=== PATIENT | male | born 1965 | race African-American/Black ===

== ENCOUNTER 2016-09-02 19:08 | Inpatient (IN) | payer MEDICAID ==
[~2016-09-02] VITALS: Ht 190.5 cm; Wt 106.1 kg
[2016-09-02] MEDS ORDERED: Nitroglycerin 2% oint pkt TOPIC ONE (19:30)
[2016-09-02 19:38] LABS: BASOPHILS % (AUTO) 2.4 % (0.0-2.0); EOSINOPHILS % (AUTO) 3.3 % (0.0-3.0); MEAN CORPUSCULAR HEMOGLOBIN 30.8 PG (27.0-31.0); MEAN CORPUSCULAR HGB CONC 31.9 G/DL (32.0-36.0); MEAN CORPUSCULAR VOLUME 96 FL (80-99); MEAN PLATELET VOLUME 7.1 FL (6.5-10.1); MONOCYTES % (AUTO) 5.3 % (1.0-10.0); NEUTROPHILS % (AUTO) 45.1 % (45.0-75.0); PLATELET COUNT 316 K/UL (150-450); RED BLOOD COUNT 5.01 M/UL (4.70-6.10); RED CELL DISTRIBUTION WIDTH 12.8 % (11.6-14.8); WHITE BLOOD COUNT 6.6 K/UL (4.8-10.8)
[2016-09-02 19:46] LABS: ALANINE AMINOTRANSFERASE 27 U/L (3-41); ALBUMIN/GLOBULIN RATIO 1.6 (1.0-2.7); ANION GAP 13 (5-15); ASPARTATE AMINO TRANSFERASE 22 U/L (5-40); CALCIUM 9.3 mg/dL (8.6-10.2); CARBON DIOXIDE 26 mEQ/L (20-30); CHLORIDE 102 mEQ/L (98-107); GLOMERULAR FILTRATION RATE > 60 mL/min (>60); HEMOLYSIS 14; POTASSIUM 4.2 mEQ/L (3.4-4.9); SODIUM 141 mEQ/L (135-145); TOTAL PROTEIN 6.9 g/dL (6.6-8.7); TROPONIN I < 0.30 ng/mL (<=0.30)
[2016-09-02 19:56] LABS: CKMB 3.3 ng/mL (< 6.7)
[2016-09-02] MEDS ORDERED: Nitroglycerin 50mg/250ml btl 250 ML IV SCH (20:00)
[2016-09-02 20:07] VITALS: BP 184/158
[2016-09-02] MEDS ORDERED: BACLOFEN10 MG ORAL (20:13)
[2016-09-02] MEDS ORDERED: PRAMIPEXOLE D0.25 MG ORAL (20:13)
[2016-09-02] MEDS ORDERED: POTASSIUM GLUC500 GM MC (20:13)
[2016-09-02] MEDS ORDERED: GABAPENTIN300 MG ORAL (20:13)
[2016-09-02] MEDS ORDERED: LATUDA40 MG PO (20:16)
[2016-09-02] MEDS ORDERED: METOPROLOL SUC100 MG ORAL (20:16)
[2016-09-02] MEDS ORDERED: VITAMIN D250000 UNI1 ORAL (20:16)
[2016-09-02] MEDS ORDERED: ASPIRIN81 MG ORAL (20:16)
[2016-09-02] MEDS ORDERED: DEPAKOTE ER500 MG ORAL (20:17)
[2016-09-02] MEDS ORDERED: LORATADINE10 M2 PO (20:17)
[2016-09-02] MEDS ORDERED: MULTIVITAMINS1 EAC2 ORAL (20:17)
[2016-09-02 20:49] VITALS: BP 131/59
[2016-09-02 21:00] VITALS: BP 127/93
[2016-09-02] MEDS ORDERED: Morphine Sulfate 4mg/ml Inj IVP ONE (21:15)
[2016-09-02 21:30] VITALS: BP 112/93
[2016-09-02 22:08] LABS: TROPONIN I < 0.30 ng/mL (<=0.30)
[2016-09-02 22:09] VITALS: BP 154/77
--- NOTE | 2016-09-02 22:44 | Emergency Room Report ---
History of Present Illness General Chief Complaint: Chest Pain Source: Patient, EMS Present Illness HPI This patient presents with chest pain that started about one hour prior to arrival. Patient states that he was at home and was not exerting himself when the symptoms started. He does admit that he has a history of 2 previous heart attacks. He states that he did do cocaine 2 days ago. He denies recent illness. He denies cough or congestion. He denies fever or chills. He denies abdominal pain. He has no other complaints. Allergies: Coded Allergies: SULFA (SULFONAMIDE ANTIBIOTICS) (Verified Allergy, Unknown, 09/02/16) Patient History Past Medical History: see triage record, HTN, OK, CAD, seizures Social History: Reports: alcohol use, drug use, Denies: smoking Reviewed Nursing Documentation: PMH: Agreed, PSxH: Agreed Nursing Documentation-PMH Hx Hypertension: Yes Hx Seizures: Yes Review of Systems All Other Systems: negative except mentioned in HPI Physical Exam Vital Signs Date Time Temp Pulse Resp B/P Pulse Ox O2 Delivery O2 Flow Rate FiO2 09/02/16 18:59 98.1 100 20 140/92 100 Room Air Sp02 EP Interpretation: reviewed, normal General Appearance: no apparent distress, alert, GCS 15, non-toxic Head: normocephalic, atraumatic Eyes: bilateral eye PERRL, bilateral eye normal inspection ENT: hearing grossly normal, normal pharynx, no angioedema, normal voice Neck: full range of motion, supple/symm/no masses Respiratory: chest non-tender, lungs clear, normal breath sounds, speaking full sentences Cardiovascular #1: regular rate, rhythm, no edema Gastrointestinal: normal bowel sounds, non tender, soft, non-distended, no guarding, no rebound Rectal: deferred Musculoskeletal: back normal, gait/station normal, normal range of motion, non- tender Neurologic: alert, oriented x3, responsive, motor strength/tone normal, sensory intact, speech normal Psychiatric: judgement/insight normal, memory normal, mood/affect normal, no suicidal/homicidal ideation Skin: normal color, no rash, warm/dry, well hydrated Medical Decision Making Diagnostic Impression: Primary Impression: Chest pain ER Course This patient has ongoing chest pain. His EKG has ST segment depressions in the inferior and lateral leads. I am unsure of a daily of this. I do not have an old EKG to compare with. The patient did do cocaine 2 years ago and could be having cocaine induced coronary artery vasospasm. 2 serial troponins sent here in the emergency department are negative. This is reassuring that there is no cardiac ischemia. The patient to need to have ongoing chest pain despite sublingual nitroglycerin and nitro paste. Therefore I placed the patient on a nitroglycerin drip. Patient was also given morphine. The patient is admitted to the ICU for further management of his chest pain, further evaluation and treatment. This patient is critically ill. This patient required complex medical decision- making, aggressive intervention, extensive laboratory workup and monitoring. Critical care time: 40 minutes. Labs Test 09/02/16 19:15 09/02/16 20:58 09/02/16 21:10 White Blood Count 6.6 K/UL (4.8-10.8) Red Blood Count 5.01 M/UL (4.70-6.10) Hemoglobin 15.4 G/DL (14.2-18.0) Hematocrit 48.3 % (42.0-52.0) Mean Corpuscular Volume 96 FL (80-99) Mean Corpuscular Hemoglobin 30.8 PG (27.0-31.0) Mean Corpuscular Hemoglobin Concent 31.9 G/DL (32.0-36.0) Red Cell Distribution Width 12.8 % (11.6-14.8) Platelet Count 316 K/UL (150-450) Mean Platelet Volume 7.1 FL (6.5-10.1) Neutrophils (%) (Auto) 45.1 % (45.0-75.0) Lymphocytes (%) (Auto) 44.0 % (20.0-45.0) Monocytes (%) (Auto) 5.3 % (1.0-10.0) Eosinophils (%) (Auto) 3.3 % (0.0-3.0) Basophils (%) (Auto) 2.4 % (0.0-2.0) Sodium Level 141 mEQ/L (135-145) Potassium Level 4.2 mEQ/L (3.4-4.9) Chloride Level 102 mEQ/L (98-107) Carbon Dioxide Level 26 mEQ/L (20-30) Anion Gap 13 (5-15) Blood Urea Nitrogen 17 mg/dL (7-23) Creatinine 1.0 mg/dL (0.7-1.2) Estimat Glomerular Filtration Rate > 60 mL/min (>60) Glucose Level 124 mg/dL (74-106) Calcium Level 9.3 mg/dL (8.6-10.2) Total Bilirubin 0.4 mg/dL (0.0-1.2) Aspartate Amino Transf (AST/SGOT) 22 U/L (5-40) Alanine Aminotransferase (ALT/SGPT) 27 U/L (3-41) Alkaline Phosphatase 105 U/L (40-129) Total Creatine Kinase 256 U/L (38-174) Creatine Kinase MB 3.3 ng/mL (< 6.7) Creatine Kinase MB Relative Index 1.2 Troponin I < 0.30 ng/mL (<=0.30) < 0.30 ng/mL (<=0.30) Total Protein 6.9 g/dL (6.6-8.7) Albumin 4.3 g/dL (3.5-5.2) Globulin 2.6 g/dL Albumin/Globulin Ratio 1.6 (1.0-2.7) Urine Opiates Screen Negative (NEGATIVE) Urine Barbiturates Screen Negative (NEGATIVE) Phencyclidine (PCP) Screen Negative (NEGATIVE) Urine Amphetamines Screen Negative (NEGATIVE) Urine Benzodiazepines Screen Negative (NEGATIVE) Urine Cocaine Screen Positive (NEGATIVE) Urine Marijuana (THC) Screen Negative (NEGATIVE) EKG Diagnostic Results Rate: normal Rhythm: NSR ST Segments: other Other Impression ST segment depressions in leads 2, 3, aVF. T wave inversions in V4, V5 and V6. Rhythm Strip Diag. Results EP Interpretation: yes Rate: 80's Rhythm: NSR, no PVC's, no ectopy Chest X-Ray Diagnostic Results EP Interpretation: Yes Findings: no consolidation, no effusion, no pneumothorax, no acute cardiopulmonary disease Number of Views: 1 Last Vital Signs Date Time Temp Pulse Resp B/P Pulse Ox O2 Delivery O2 Flow Rate FiO2 09/02/16 22:09 98.1 78 17 154/77 98 Room Air Disposition: ADMITTED INPATIENT Condition: Critical Referrals: NOT CHOSEN IPA/,REFERRING (PCP) ROBERTA ELIZABETH D.O. Sep 02, 2016 22:44
[2016-09-02 23:29] VITALS: BP 131/79
[2016-09-03] VITALS (19 sets, daily range): BP systolic 107–173; BP diastolic 75–98
[2016-09-03 04:59] LABS: BASOPHILS % (AUTO) 2.1 % (0.0-2.0); EOSINOPHILS % (AUTO) 2.8 % (0.0-3.0); LYMPHOCYTES % (AUTO) 44.7 % (20.0-45.0); MEAN CORPUSCULAR HEMOGLOBIN 32.2 PG (27.0-31.0); MEAN CORPUSCULAR HGB CONC 33.4 G/DL (32.0-36.0); MEAN CORPUSCULAR VOLUME 96 FL (80-99); MEAN PLATELET VOLUME 7.7 FL (6.5-10.1); MONOCYTES % (AUTO) 6.6 % (1.0-10.0); NEUTROPHILS % (AUTO) 43.8 % (45.0-75.0); PLATELET COUNT 279 K/UL (150-450); RED BLOOD COUNT 4.53 M/UL (4.70-6.10); RED CELL DISTRIBUTION WIDTH 12.3 % (11.6-14.8); WHITE BLOOD COUNT 6.9 K/UL (4.8-10.8)
[2016-09-03] MEDS: Heparin 5000 units/ml inj SUBQ SCH ×3 (06:01→21:23)
[2016-09-03 06:05] LABS: TROPONIN I < 0.30 ng/mL (<=0.30)
[2016-09-03 06:06] LABS: ALANINE AMINOTRANSFERASE 23 U/L (3-41); ALBUMIN/GLOBULIN RATIO 1.5 (1.0-2.7); ANION GAP 17 (5-15); ASPARTATE AMINO TRANSFERASE 19 U/L (5-40); CALCIUM 9.2 mg/dL (8.6-10.2); CARBON DIOXIDE 25 mEQ/L (20-30); CHLORIDE 93 mEQ/L (98-107); CHOLESTEROL 148 mg/dL (< 200); CHOLESTEROL/HDL RATIO 3.5 (3.3-4.4); GLOMERULAR FILTRATION RATE > 60 mL/min (>60); HEMOLYSIS 5; LDL CHOLESTEROL (CALC.) 70 mg/dL (60-99); PHOSPHORUS 2.6 mg/dL (2.5-4.8); SODIUM 135 mEQ/L (135-145); TOTAL PROTEIN 6.7 g/dL (6.6-8.7)
[2016-09-03] MEDS: Metoprolol XL 100mg tab ORAL SCH (08:27)
[2016-09-03] MEDS: Depakote ER 500mg tab ORAL SCH ×2 (08:27→21:22)
[2016-09-03] MEDS: Aspirin Baby 81mg NG SCH (08:28)
[2016-09-03] MEDS: Nitroglycerin Subl 0.4mg tab (Bottle Of 25) SL PRN ×2 (10:15→15:16)
--- NOTE | 2016-09-03 11:05 | Diagnostic Imaging Report ---
Indication: Chest Pain Comparison: None A single view chest radiograph was obtained. Findings: Cardiomediastinal appearance is within normal limits for age. Pulmonary vascularity is appropriate. The diaphragmatic contour is smooth and costophrenic angles are sharp. No pleural effusions are identified. The bones are unremarkable. Impression: No acute findings
--- NOTE | 2016-09-03 12:00 | Diagnostic Imaging Report ---
Indication: Chest pain. Technique: Continuous helical transaxial imaging of the chest, abdomen and pelvis was obtained from the thoracic inlet to the pubic symphysis during rapid intravenous contrast administration. Arterial phase of enhancement obtained. Coronal 2-D reformats were also obtained and maximum intensity projection images in multiple planes. Study obtained in a Siemens sensation [address] Total Dose length Product (DLP): [address] Dose Index Volume (CTDIvol): 8, 81, 15 mGy Comparison: None Findings: The pulmonary artery is well filled centrally. The segmental vessels are not adequately opacified on this study due to inadequate timing of the bolus of contrast. The thoracic aorta appears normal caliber. There is some mural calcification present. Similar findings involving the abdominal aorta with most of the neural calcification and plaquing involving the distal aorta at the bifurcation extending into the common iliac arteries. Mild to moderate atherosclerotic disease is present. There is no significant stenosis identified involving the aorta. There is early no evidence of dissection or aneurysm. The right innominate artery, left common carotid artery and left subclavian arteries appear normal and opacify normally. The celiac trunk, SMA, bilateral renal arteries appear widely patent. Inferior mesenteric artery is widely patent. There are some breathing motion artifact limiting evaluation of the lower abdomen. Both kidneys enhance normally and symmetrically an early arterial phase. There is a ovoid lipoma well-circumscribed measuring 3.5 x 1.8 cm incidentally noted within the right gluteus medius muscle. Gallbladder is contracted. Hypodensity in the liver is nonspecific and seen in the right lobe. Minimal posterior basilar atelectasis demonstrated. Mild paraseptal bleb formation at the lung apices noted. Impression: No evidence of aortic dissection or aneurysm. Mild to moderate atherosclerotic vascular disease as described above. No obvious pulmonary embolus identified. One caveat: The segmental branches involving both lower lobes are not adequately evaluated on this study due to timing issues. Incidental findings include a right gluteal lipoma, nonspecific tiny right lobe liver hypodensity, breathing motion artifact
--- NOTE | 2016-09-03 15:44 | History & Physical ---
History and Physical History & Physicial Dictated for Int Med-Dr Crocker no. [id number]. SHANNON DIAS Sep 03, 2016 15:44
--- NOTE | 2016-09-03 23:38 | History and Physical Report ---
DATE OF ADMISSION: 09/02/2016 CHIEF COMPLAINT: The patient is a 51-year-old male with a history of coronary artery disease, who presents with complaint of chest pain. HISTORY OF PRESENT ILLNESS: The patient has a history of coronary artery disease. The patient states that he has had two "small heart attacks" in the past. The last was in 05/2016, which the patient was admitted to [facility]. The patient states that he had another "small heart attack" 6 or 7 years ago. The patient underwent a cardiac angioplasty 6 or 7 years ago at [facility]. The patient states the chest pain began yesterday afternoon. At first, the chest pain was mild. The patient was taking a shower last evening. Chest pain got stronger while in the shower. The patient states that the pain lasted approximately one hour. Chest pain is described as substernal. Chest pain radiates to the left arm. The patient presented to [facility]. The patient is admitted for chest pain to rule out acute cardiac syndrome. PAST MEDICAL HISTORY: Significant for, 1. Coronary artery disease. 2. Hypertension. PAST SURGICAL HISTORY: The patient denies. CURRENT MEDICATIONS: 1. Aspirin 81 mg one tablet p.o. daily. 2. Baclofen 10 mg one tablet p.o. twice daily. 3. Depakote 500 mg one tablet p.o. twice daily. 4. Vitamin D 50,000 units p.o. q. weekly. 5. Gabapentin 300 mg one tablet p.o. 3 times daily. 6. Claritin 10 mg one tablet p.o. daily. 7. Latuda 80 mg one tablet p.o. daily. 8. Metoprolol 100 mg one tablet p.o. daily. 9. Vitamins one tablet p.o. daily. 10. Potassium 500 g p.o. daily. 11. Mirapex 0.125 mg one tablet p.o. twice daily. ALLERGIES: To sulfa. SOCIAL HISTORY: The patient is and is disabled. The patient admits to tobacco use one-half pack per day. The patient admits to occasional alcohol use. The patient admits to occasional smoking of cocaine, however, the patient last used cocaine two days previously. FAMILY HISTORY: Negative for diabetes. Family history is significant for coronary artery disease in the patient's mother. REVIEW OF SYSTEMS: Constitutional: The patient denies weight loss or weight gain. The patient denies fevers or chills. HEENT: The patient denies ear or throat pain. Cardiovascular: The patient complains of chest pain as above. The patient denies palpitations. Chest: The patient denies wheeze or shortness of breath. Abdomen: The patient denies nausea, vomiting, diarrhea, or constipation. Genitourinary: The patient denies dysuria or increased frequency of urination. Neuromuscular: The patient denies seizures or generalized weakness. PHYSICAL EXAMINATION: VITAL SIGNS: Temperature 97.1 degrees, respirations 16, pulse 84, and blood pressure elevated at 154/98. GENERAL: The patient is a well-developed, well-nourished, male, in no apparent distress. HEENT: Eyes, pupils are equal and responsive to light and accommodation. Extraocular movements are intact. NECK: Supple without lymphadenopathy. CHEST: Lungs are clear to auscultation bilaterally without wheezes or rales. CARDIOVASCULAR: Regular rate. S1 and S2 normal without murmurs, rubs, or gallops. ABDOMEN: Soft, nontender, and nondistended. Positive bowel sounds. No evidence of hepatosplenomegaly. Currently, no rebound or guarding. EXTREMITIES: Negative for clubbing, cyanosis, or edema. RECTAL: Refused. GENITAL: Refused. NEUROLOGIC: Cranial nerves II through XII are grossly intact without focal deficits. Motor strength is 5/5 bilaterally. Deep tendon reflexes 2+ plantar. LABORATORY STUDIES: WBC 6.3, hemoglobin 15.4, hematocrit 40.3, and platelets 316,000. Sodium 141, potassium 4.2, chloride 102, CO2 26, BUN 17, creatinine 1.0, and glucose 124. Troponin is less than 0.3. A urine drug screen was positive for cocaine. ASSESSMENT: This is a 51-year-old male. 1. Chest pain. 2. History of coronary artery disease. 3. Uncontrolled hypertension. 4. Psychiatric disorder, not otherwise specified. TREATMENT: 1. Chest pain/coronary artery disease. A Cardiology consultation was obtained with Dr. Jarad Chow. An adenosine Cardiolite stress test is pending. An echocardiogram has been obtained. Chest pain is concerning. The patient with previous percutaneous transluminal coronary angioplasty and previous myocardial infarction. 2. Uncontrolled hypertension. Continue metoprolol as above. Clonidine will be used as needed for systolic greater than 150 or diastolic greater than 100. 3. Psychiatric disorder. It appears on the patient's medications that he has bipolar depression. Continue Depakote and Latuda as above. Ever Jolly M.D. DR: CORINA JOB#: [id number] CC:
[2016-09-04 04:31] LABS: BASOPHILS % (AUTO) 1.4 % (0.0-2.0); EOSINOPHILS % (AUTO) 2.4 % (0.0-3.0); LYMPHOCYTES % (AUTO) 50.4 % (20.0-45.0); MEAN CORPUSCULAR HEMOGLOBIN 31.7 PG (27.0-31.0); MEAN CORPUSCULAR HGB CONC 32.2 G/DL (32.0-36.0); MEAN CORPUSCULAR VOLUME 98 FL (80-99); MEAN PLATELET VOLUME 7.4 FL (6.5-10.1); MONOCYTES % (AUTO) 5.1 % (1.0-10.0); NEUTROPHILS % (AUTO) 40.7 % (45.0-75.0); PLATELET COUNT 276 K/UL (150-450); RED BLOOD COUNT 4.68 M/UL (4.70-6.10); RED CELL DISTRIBUTION WIDTH 12.6 % (11.6-14.8); WHITE BLOOD COUNT 6.6 K/UL (4.8-10.8)
[2016-09-04 05:09] LABS: TROPONIN I < 0.30 ng/mL (<=0.30)
[2016-09-04 05:25] LABS: ANION GAP 13 (5-15); CALCIUM 9.4 mg/dL (8.6-10.2); CARBON DIOXIDE 26 mEQ/L (20-30); CHLORIDE 102 mEQ/L (98-107); GLOMERULAR FILTRATION RATE > 60 mL/min (>60); HEMOLYSIS 7; SODIUM 141 mEQ/L (135-145)
[2016-09-04 06:09] VITALS: BP 143/81
[2016-09-04] MEDS: Heparin 5000 units/ml inj SUBQ SCH ×3 (06:12→21:25)
[2016-09-04] MEDS: Aspirin Baby 81mg NG SCH (08:29)
[2016-09-04] MEDS: Depakote ER 500mg tab ORAL SCH (08:30)
[2016-09-04] MEDS: Metoprolol XL 100mg tab ORAL SCH (08:30)
[2016-09-04 09:00] VITALS: BP 143/101
--- NOTE | 2016-09-04 10:29 | Cardiology Report ---
APPROVED REPORT EXAM: Two-dimensional and M-mode echocardiogram with Doppler and color Doppler. M-Mode DIMENSIONS IVSd1.3 (0.7-1.1cm)Left Atrium (MM)3.6 (1.6-4.0cm) LVDd5.3 (3.5-5.6cm)Aortic Root3.7 (2.0-3.7cm) PWd1.3 (0.7-1.1cm)Aortic Cusp Exc.1.9 (1.5-2.0cm) LVDs4.3 (2.5-4.0cm) PWs2.0 cm Technically difficult study due to severe pain and movement. Global left ventricular hypokinesis. Left ventricular ejection fraction estimated to be 30%. No left ventricular hypertrophy. Mild left atrial enlargment seen in 2D. Mild left ventricular enlargment. Focal aortic valve sclerosis with adequate cusp excursion Midly thickened mitral valve leaflets with normal excursion. Pulmonic valve not well visualized. Normal tricuspid valve structure. IVC at 1.6cm with no physiologic collapse. suggestive RAP 10mmHg. A color flow and spectral Doppler study was performed and revealed: No aortic regurgitation. Trace-mild mitral regurgitation. Mitral inflow velocities indicates reduced left ventricular relaxation diastolic dysfunction. Grade one. Trace tricuspid regurgitation. Tricuspid systolic velocities suggests peak right ventricular systolic pressure of 10 mmHg. No pulmonic regurgitation present.
[2016-09-04 12:00] VITALS: BP 137/70
--- NOTE | 2016-09-04 12:27 | Cardiac Electrophysiology PN ---
Subjective Subjective [id number]. Objective Last 24 Hour Vital Signs Date Time Temp Pulse Resp B/P Pulse Ox O2 Delivery O2 Flow Rate FiO2 09/04/16 09:30 97.9 09/04/16 09:00 97.9 67 20 143/101 97 Room Air 09/04/16 08:30 81 143/81 09/04/16 08:00 73 09/04/16 06:09 96.6 81 19 143/81 97 Room Air 09/04/16 04:00 68 09/04/16 00:00 69 09/03/16 23:32 97.5 72 19 173/83 96 Room Air 09/03/16 20:00 73 17 133/79 96 Room Air 09/03/16 20:00 74 09/03/16 19:00 73 17 141/81 97 Room Air 09/03/16 18:00 73 17 137/76 98 Room Air 09/03/16 17:00 77 16 124/87 98 Room Air 09/03/16 16:00 99.5 74 20 136/87 97 Room Air 09/03/16 16:00 74 09/03/16 15:16 151/89 09/03/16 14:00 88 16 134/81 98 Room Air Intake and Output 09/03/16 09/04/16 19:00 07:00 Intake Total 1100 ml 600 ml Output Total 500 ml Balance 600 ml 600 ml Intake Oral 1100 ml 600 ml Output Urine Total 500 ml # Bowel Movements 3 1 Laboratory Tests Test 09/04/16 03:45 White Blood Count 6.6 K/UL (4.8-10.8) Red Blood Count 4.68 M/UL (4.70-6.10) L Hemoglobin 14.8 G/DL (14.2-18.0) Hematocrit 46.0 % (42.0-52.0) Mean Corpuscular Volume 98 FL (80-99) Mean Corpuscular Hemoglobin 31.7 PG (27.0-31.0) H Mean Corpuscular Hemoglobin Concent 32.2 G/DL (32.0-36.0) Red Cell Distribution Width 12.6 % (11.6-14.8) Platelet Count 276 K/UL (150-450) Mean Platelet Volume 7.4 FL (6.5-10.1) Neutrophils (%) (Auto) 40.7 % (45.0-75.0) L Lymphocytes (%) (Auto) 50.4 % (20.0-45.0) H Monocytes (%) (Auto) 5.1 % (1.0-10.0) Eosinophils (%) (Auto) 2.4 % (0.0-3.0) Basophils (%) (Auto) 1.4 % (0.0-2.0) Sodium Level 141 mEQ/L (135-145) Potassium Level 4.0 mEQ/L (3.4-4.9) Chloride Level 102 mEQ/L (98-107) Carbon Dioxide Level 26 mEQ/L (20-30) Anion Gap 13 (5-15) Blood Urea Nitrogen 9 mg/dL (7-23) Creatinine 1.0 mg/dL (0.7-1.2) Estimat Glomerular Filtration Rate > 60 mL/min (>60) Glucose Level 148 mg/dL (74-106) H Calcium Level 9.4 mg/dL (8.6-10.2) Troponin I < 0.30 ng/mL (<=0.30) AVILA DURAN Sep 04, 2016 12:27
[2016-09-04 16:00] VITALS: BP 136/75
--- NOTE | 2016-09-04 17:39 | Internal Med Progress Note ---
Subjective Date of Service: Sep 04, 2016 Physician Name Ever Dias Attending Physician Chele Crocker MD Current Medications Medications (Trade) Dose Ordered Sig/Jewels Route PRN Reason Start Time Stop Time Status Last Admin Dose Admin Acetaminophen (Tylenol) 650 mg Q6H PRN ORAL For Pain 09/03/16 08:15 10/03/16 08:14 09/04/16 12:14 Aspirin (ASA) 81 mg DAILY NG 09/03/16 09:00 10/03/16 08:59 09/04/16 08:29 Baclofen (Lioresal) 10 mg BID ORAL 09/03/16 09:00 10/03/16 08:59 09/04/16 08:29 Divalproex Sodium (Depakote ER) 500 mg EVERY 12 HOURS ORAL 09/03/16 09:00 10/03/16 08:59 09/04/16 08:30 Furosemide (Lasix) 40 mg DAILY IV 09/05/16 09:00 10/05/16 08:59 Gabapentin (Neurontin) 300 mg THREE TIMES A DAY ORAL 09/03/16 09:00 10/03/16 08:59 09/04/16 12:14 Heparin Sodium (Porcine) (Heparin 5000 units/ml) 5,000 units EVERY 8 HOURS SUBQ 09/03/16 06:00 10/03/16 05:59 09/04/16 14:10 Lisinopril (Prinivil) 20 mg DAILY ORAL 09/05/16 09:00 10/05/16 08:59 Nitroglycerin (Ntg) 0.4 mg Q5M PRN SL Prn Chest Pain 09/03/16 01:30 10/03/16 01:29 09/03/16 15:16 Ondansetron HCl (Zofran) 4 mg EVERY 4 HOURS PRN IVP Nausea & Vomiting 09/03/16 20:30 10/03/16 20:29 09/03/16 20:26 Pantoprazole (Protonix) 40 mg DAILY ORAL 09/03/16 09:00 10/03/16 08:59 09/04/16 08:29 Pramipexole (Mirapex) 0.125 mg BID ORAL 09/03/16 09:00 10/03/16 08:59 09/04/16 08:29 Spironolactone (Aldactone) 25 mg DAILY ORAL 09/05/16 09:00 10/05/16 08:59 Allergies: Coded Allergies: SULFA (SULFONAMIDE ANTIBIOTICS) (Verified Allergy, Unknown, 09/02/16) ROS Limited/Unobtainable: No Constitutional: Reports: no symptoms HEENT: Reports: no symptoms Cardiovascular: Reports: chest pain Respiratory: Reports: no symptoms Gastrointestinal/Abdominal: Reports: no symptoms Genitourinary: Reports: no symptoms Neurologic/Psychiatric: Reports: no symptoms Subjective 51 YO M admitted with chest pain. Cover for Int Med-Dr Crocker. C/O chest pain. Await adenosine cardiac stress test. Objective Last Vital Signs Date Time Temp Pulse Resp B/P Pulse Ox O2 Delivery O2 Flow Rate FiO2 09/04/16 16:00 97.9 73 14 136/75 97 Room Air General Appearance: WD/WN, no apparent distress, alert EENT: PERRL/EOMI, normal ENT inspection, TMs normal Neck: non-tender, normal alignment, supple, normal inspection Cardiovascular: normal peripheral pulses, normal rate, regular rhythm, no gallop/murmur, no JVD Respiratory/Chest: chest wall non-tender, lungs clear, normal breath sounds, no respiratory distress, no accessory muscle use Abdomen: normal bowel sounds, non tender, soft, no organomegaly, no mass Extremities: normal range of motion, non-tender 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, no motor/sensory deficits Skin: normal pigmentation, warm/dry Laboratory Tests Test 09/04/16 03:45 09/04/16 12:30 White Blood Count 6.6 K/UL (4.8-10.8) Red Blood Count 4.68 M/UL (4.70-6.10) L Hemoglobin 14.8 G/DL (14.2-18.0) Hematocrit 46.0 % (42.0-52.0) Mean Corpuscular Volume 98 FL (80-99) Mean Corpuscular Hemoglobin 31.7 PG (27.0-31.0) H Mean Corpuscular Hemoglobin Concent 32.2 G/DL (32.0-36.0) Red Cell Distribution Width 12.6 % (11.6-14.8) Platelet Count 276 K/UL (150-450) Mean Platelet Volume 7.4 FL (6.5-10.1) Neutrophils (%) (Auto) 40.7 % (45.0-75.0) L Lymphocytes (%) (Auto) 50.4 % (20.0-45.0) H Monocytes (%) (Auto) 5.1 % (1.0-10.0) Eosinophils (%) (Auto) 2.4 % (0.0-3.0) Basophils (%) (Auto) 1.4 % (0.0-2.0) Sodium Level 141 mEQ/L (135-145) Potassium Level 4.0 mEQ/L (3.4-4.9) Chloride Level 102 mEQ/L (98-107) Carbon Dioxide Level 26 mEQ/L (20-30) Anion Gap 13 (5-15) Blood Urea Nitrogen 9 mg/dL (7-23) Creatinine 1.0 mg/dL (0.7-1.2) Estimat Glomerular Filtration Rate > 60 mL/min (>60) Glucose Level 148 mg/dL (74-106) H Calcium Level 9.4 mg/dL (8.6-10.2) Troponin I < 0.30 ng/mL (<=0.30) Pro-B-Type Natriuretic Peptide 196 pg/mL (0-125) H Intake and Output 09/03/16 09/04/16 19:00 07:00 Intake Total 1100 ml 600 ml Output Total 500 ml Balance 600 ml 600 ml Intake Oral 1100 ml 600 ml Output Urine Total 500 ml # Bowel Movements 3 1 Assessment/Plan Problem List: (1) Accelerated hypertension Assessment & Plan: Continue lisinopril. (2) Coronary artery disease Assessment & Plan: H/O IN-see cardiology note. (3) Chest pain Assessment & Plan: See Cardiology note. Await adenosine stress test in am . (4) Bipolar 1 disorder, depressed Assessment & Plan: Continue Depakote; latuda non formulary. Await psych consult. Status: not improved EVER DIAS Sep 04, 2016 17:39
[2016-09-04 20:00] VITALS: BP 130/87
[2016-09-04] MEDS ORDERED: Depakote ER 500mg tab ORAL SCH (21:00)
[2016-09-04] MEDS ORDERED: QUEtiapine 200mg tab ORAL SCH (21:00)
[2016-09-04] MEDS: HYDROmorphone 1mg/ml Carpuject IVP PRN (21:23)
--- NOTE | 2016-09-04 23:47 | Consultation ---
DATE OF CONSULTATION: 09/04/2016 CARDIOLOGY CONSULTATION CONSULTING PHYSICIAN: Jarad Chow M.D. REFERRING PHYSICIAN: Chele Crocker M.D. REASON FOR CONSULTATION: Chest pain in the patient with questionable history of coronary artery disease. HISTORY OF PRESENT ILLNESS: The patient is a 51-year-old gentleman with history of hypertension and coronary disease per the patient when he was at [facility] in May 2016. The patient had also reported a small heart attack six to seven years ago. The patient also stated that he had an angioplasty seven years ago at [facility]. The patient presented to the emergency room complaining of chest pain with radiation to the left arm. His EKG showed T-wave abnormalities suggestive of inferolateral ischemia. He also had an echocardiogram that showed ejection fraction of only 30%. A Cardiology consultation was obtained for further evaluation and management. PAST MEDICAL HISTORY: 1. Hypertension. 2. Coronary artery disease. MEDICATIONS: Per reconciliation. ALLERGIES: To sulfa. SOCIAL HISTORY: He is and disabled. He still smokes sbex-x-rdev-a-day and occasionally drinks alcohol. The patient also admits to prior use of cocaine with the last one, two days ago. FAMILY HISTORY: Noncontributory. REVIEW OF SYSTEMS: His review of systems was thoroughly performed and was negative other than what was mentioned in the history of present illness. PHYSICAL EXAMINATION: VITAL SIGNS: Blood pressure is now 143/101, pulse is 67, respirations 20, and is afebrile. HEAD AND NECK: Shows positive JVD. LUNGS: Clear. CARDIOVASCULAR: Shows regular S1 and S2 with no gallop or murmur. ABDOMEN: Soft. EXTREMITIES: A 1+ pitting edema. LABORATORY DATA: Show urine toxicology screen is positive for cocaine. Sodium 141, potassium 4.0, BUN of 9, creatinine 1, and glucose of 148. Troponins are negative x3. His white count 6.7, hemoglobin 14.9, hematocrit 46, and platelet count of 276,000. ASSESSMENT AND PLAN: 1. Chest pain. The patient was ruled out for myocardial infarction. This is likely due to the patient's use of cocaine. We will avoid beta-deondre in view of his concurrent cocaine use. aspirin and Lipitor to his medical regimen. 2. Severe cardiomyopathy with ejection fraction of 30%. We will try to get the records from first hospitalization, but in the meantime, put him on lisinopril, Aldactone, and Lasix and avoid beta-deondre in view of the patient's active cocaine use. 3. Polysubstance abuse with cocaine, alcohol, and smoking. Thank you very much, Dr. Crocker, for allowing me to participate in the care of this patient. Please do not hesitate to contact me for any questions regarding my evaluation. Jarad Chow M.D. DR: GUS JOB#: [id number] CC:
[2016-09-05] VITALS: BP 146/77
--- NOTE | 2016-09-05 01:18 | Consultation ---
DATE OF CONSULTATION: HISTORY OF PRESENT ILLNESS: The patient is a 51-year-old, black male with a history of bipolar disorder with psychotic features versus schizoaffective disorder, coronary artery disease, and myocardial infarction in the past. History of cocaine abuse. He has been admitted due to chest pain. Apparently, the patient has used cocaine two days prior to admission. He has been also taking Depakote as well as the Seroquel. During the evaluation, the patient endorses dysphoric mood and anxiety. No suicidal or homicidal ideations. No delusions. No auditory or visual hallucinations. He does endorse irritable mood and complained of chest pain. He has been tolerating medication and has been compliant with his medications all along prior to the hospitalization. His sleep and appetite are adequate. There was no psychomotor agitation or retardation noted during the evaluation. He does not endorse any hopelessness or helplessness. PAST PSYCHIATRIC HISTORY: Diagnosed with schizoaffective disorder and bipolar disorder and has had one psychiatric hospitalization in the past. No suicide attempts in the past. No history of violence in the past. PAST MEDICAL HISTORY: 1. Coronary artery disease. 2. Myocardial infarction. 3. Hypertension. PAST SURGICAL HISTORY: No surgical history. ALLERGIES: Sulfa. MEDICATIONS: At home include: 1. Depakote 500 mg p.o. thrice a day. 2. Gabapentin. 3. Claritin. 4. Metoprolol. 5. Latuda. 6. The patient was started on Seroquel in the hospital. SUBSTANCE ABUSE HISTORY: Includes tobacco use, one-half pack pack a day. He drinks alcohol socially. He uses cocaine. SOCIAL HISTORY: The patient is . He is on disability SSI. MENTAL STATUS EXAMINATION: Alert and oriented x3. Mood is slightly irritable. Affect is constricted. Congruent mood. Thought process is concrete. Thought content is negative for suicidal or homicidal ideation. No delusions. No auditory of visual hallucinations. Cognition is intact. Insight and judgment is fair. ASSESSMENT: The patient is a 51-year-old male with a history of multiple medical problems, including coronary artery disease and schizoaffective disorder who has been admitted for chest pain. The patient also has been taking the Latuda outside of the hospital. His psychiatric symptoms are currently controlled on current medication regimen. The patient told that Latuda is not on the formulary. However, he is on Depakote as well as the Seroquel and he is not danger to self or others. Not very disabled. PLAN: 1. The patient's Depakote will be changed to Depakote ER 1000 mg at bedtime. We will continue the Seroquel or 400 mg p.o. at bedtime. 2. We will also add the clonidine 0.5 mg p.o. at bedtime. 3. We will continue to follow. Jurgen Lopez M.D. DR: Pau JOB#: [id number] CC:
[2016-09-05 04:00] VITALS: BP 119/70
[2016-09-05] MEDS: Heparin 5000 units/ml inj SUBQ SCH ×2 (05:33→13:12)
[2016-09-05 05:55] LABS: MEAN CORPUSCULAR HEMOGLOBIN 31.5 PG (27.0-31.0); MEAN CORPUSCULAR HGB CONC 31.5 G/DL (32.0-36.0); MEAN CORPUSCULAR VOLUME 100 FL (80-99); PLATELET COUNT 240 K/UL (150-450); RED BLOOD COUNT 4.31 M/UL (4.70-6.10); RED CELL DISTRIBUTION WIDTH 12.5 % (11.6-14.8); WHITE BLOOD COUNT 5.7 K/UL (4.8-10.8)
[2016-09-05 07:06] LABS: ANION GAP 18 (5-15); CALCIUM 9.3 mg/dL (8.6-10.2); CARBON DIOXIDE 24 mEQ/L (20-30); CHLORIDE 102 mEQ/L (98-107); CREATININE 1.1 mg/dL (0.7-1.2); GLOMERULAR FILTRATION RATE > 60 mL/min (>60); HEMOLYSIS 6; POTASSIUM 3.6 mEQ/L (3.4-4.9); SODIUM 144 mEQ/L (135-145)
[2016-09-05 08:00] VITALS: BP 165/79
[2016-09-05] MEDS: Aspirin Baby 81mg NG SCH (08:33)
[2016-09-05] MEDS: HYDROmorphone 1mg/ml Carpuject IVP PRN (08:40)
[2016-09-05] MEDS ORDERED: Spironolactone 25mg tab ORAL SCH (09:00)
[2016-09-05] MEDS ORDERED: Lisinopril 20mg tab ORAL SCH (09:00)
[2016-09-05 10:11] LABS: BASOPHILS % (MANUAL) 3 % (0-2); EOSINOPHILS % (MANUAL) 3 % (0-3); LYMPHOCYTES % (MANUAL) 56 % (20-45); NEUTROPHILS % (MANUAL) 35 % (45-75); TOTAL CELLS COUNTED 100
[2016-09-05 10:12] LABS: BAND NEUTROPHILS % (MANUAL) 0 % (0-8); PLATELET ESTIMATE ADEQUATE; PLATELET MORPHOLOGY NORMAL
[2016-09-05 12:00] VITALS: BP 127/82
--- NOTE | 2016-09-05 13:09 | Internal Med Progress Note ---
Subjective Date of Service: Sep 05, 2016 Physician Name Shannon Dias Attending Physician Chele Crocker MD Current Medications Medications (Trade) Dose Ordered Sig/Jewels Route PRN Reason Start Time Stop Time Status Last Admin Dose Admin Acetaminophen (Tylenol) 650 mg Q6H PRN ORAL Mild Pain (Pain Scale 1-3) 09/04/16 20:00 10/04/16 19:59 Aspirin (ASA) 81 mg DAILY NG 09/03/16 09:00 10/03/16 08:59 09/05/16 08:33 Baclofen (Lioresal) 10 mg BID ORAL 09/03/16 09:00 10/03/16 08:59 09/05/16 08:33 Clonazepam (KlonoPIN) 0.5 mg BEDTIME ORAL 09/05/16 21:00 09/12/16 20:59 Divalproex Sodium (Depakote ER) 1,000 mg BEDTIME ORAL 09/04/16 21:00 10/04/16 20:59 09/04/16 21:23 Furosemide (Lasix) 40 mg DAILY IV 09/05/16 09:00 10/05/16 08:59 09/05/16 08:33 Gabapentin (Neurontin) 300 mg THREE TIMES A DAY ORAL 09/03/16 09:00 10/03/16 08:59 09/05/16 08:34 Heparin Sodium (Porcine) (Heparin 5000 units/ml) 5,000 units EVERY 8 HOURS SUBQ 09/03/16 06:00 10/03/16 05:59 09/05/16 05:33 Hydromorphone HCl (Dilaudid) 1 mg Q4H PRN IVP Severe Pain (Pain Scale 7-10) 09/04/16 20:00 09/11/16 19:59 09/05/16 08:40 Lisinopril (Prinivil) 20 mg DAILY ORAL 09/05/16 09:00 10/05/16 08:59 09/05/16 08:33 Nitroglycerin (Ntg) 0.4 mg Q5M PRN SL Prn Chest Pain 09/03/16 01:30 10/03/16 01:29 09/03/16 15:16 Ondansetron HCl (Zofran) 4 mg EVERY 4 HOURS PRN IVP Nausea & Vomiting 09/03/16 20:30 10/03/16 20:29 09/03/16 20:26 Pantoprazole (Protonix) 40 mg DAILY ORAL 09/03/16 09:00 10/03/16 08:59 09/05/16 08:33 Pramipexole (Mirapex) 0.125 mg BID ORAL 09/03/16 09:00 10/03/16 08:59 09/05/16 08:33 Quetiapine Fumarate (SEROquel) 400 mg QHS ORAL 09/04/16 21:00 10/04/16 20:59 09/04/16 21:23 Spironolactone (Aldactone) 25 mg DAILY ORAL 09/05/16 09:00 10/05/16 08:59 09/05/16 08:33 Allergies: Coded Allergies: SULFA (SULFONAMIDE ANTIBIOTICS) (Verified Allergy, Unknown, 09/02/16) ROS Limited/Unobtainable: No Constitutional: Reports: no symptoms HEENT: Reports: no symptoms Cardiovascular: Reports: chest pain Respiratory: Reports: no symptoms Gastrointestinal/Abdominal: Reports: no symptoms Genitourinary: Reports: no symptoms Neurologic/Psychiatric: Reports: no symptoms Subjective 51 YO M admitted with chest pain. Cover for Int Anders-Dr Crocker. C/O chest pain. Await adenosine cardiac stress test today Objective Last Vital Signs Date Time Temp Pulse Resp B/P Pulse Ox O2 Delivery O2 Flow Rate FiO2 09/05/16 12:00 97.7 65 20 127/82 97 Room Air Laboratory Tests Test 09/05/16 04:20 White Blood Count 5.7 K/UL (4.8-10.8) Red Blood Count 4.31 M/UL (4.70-6.10) L Hemoglobin 13.6 G/DL (14.2-18.0) L Hematocrit 43.0 % (42.0-52.0) Mean Corpuscular Volume 100 FL (80-99) H Mean Corpuscular Hemoglobin 31.5 PG (27.0-31.0) H Mean Corpuscular Hemoglobin Concent 31.5 G/DL (32.0-36.0) L Red Cell Distribution Width 12.5 % (11.6-14.8) Platelet Count 240 K/UL (150-450) Mean Platelet Volume 7.0 FL (6.5-10.1) Neutrophils (%) (Auto) % (45.0-75.0) Lymphocytes (%) (Auto) % (20.0-45.0) Monocytes (%) (Auto) % (1.0-10.0) Eosinophils (%) (Auto) % (0.0-3.0) Basophils (%) (Auto) % (0.0-2.0) Differential Total Cells Counted 100 Neutrophils % (Manual) 35 % (45-75) L Lymphocytes % (Manual) 56 % (20-45) H Monocytes % (Manual) 3 % (1-10) Eosinophils % (Manual) 3 % (0-3) Basophils % (Manual) 3 % (0-2) H Band Neutrophils 0 % (0-8) Platelet Estimate Adequate Platelet Morphology Normal Red Blood Cell Morphology Normal Sodium Level 144 mEQ/L (135-145) Potassium Level 3.6 mEQ/L (3.4-4.9) Chloride Level 102 mEQ/L (98-107) Carbon Dioxide Level 24 mEQ/L (20-30) Anion Gap 18 (5-15) H Blood Urea Nitrogen 12 mg/dL (7-23) Creatinine 1.1 mg/dL (0.7-1.2) Estimat Glomerular Filtration Rate > 60 mL/min (>60) Glucose Level 140 mg/dL (74-106) H Calcium Level 9.3 mg/dL (8.6-10.2) Pro-B-Type Natriuretic Peptide 135 pg/mL (0-125) H Thyroid Stimulating Hormone (TSH) 3.060 uIU/mL (0.300-4.500) Free Thyroxine 0.70 ng/dL (0.86-1.85) L Microbiology Date/Time Source Procedure Growth Status 09/03/16 00:15 Nasal Nares MRSA Culture - Final NO METHICILLIN RESISTANT STAPH AUREUS... Complete 09/03/16 00:15 Rectum VRE Culture - Final NO VANCOMYCIN RESISTANT ENTEROCOCCUS ... Complete Intake and Output 09/04/16 09/05/16 19:00 07:00 Intake Total 960 ml Balance 960 ml Intake Oral 960 ml # Voids 3 2 # Bowel Movements 1 Objective General Appearance: WD/WN, no apparent distress, alert EENT: PERRL/EOMI, normal ENT inspection, TMs normal Neck: non-tender, normal alignment, supple, normal inspection Cardiovascular: normal peripheral pulses, normal rate, regular rhythm, no gallop/murmur, no JVD Respiratory/Chest: chest wall non-tender, lungs clear, normal breath sounds, no respiratory distress, no accessory muscle use Abdomen: normal bowel sounds, non tender, soft, no organomegaly, no mass Extremities: normal range of motion, non-tender Neurologic: timers inspector II-XII grossly normal, no motor/sensory deficits Skin: normal pigmentation, warm/dry Assessment/Plan Problem List: (1) Accelerated hypertension Assessment & Plan: Continue lisinopril. (2) Coronary artery disease Assessment & Plan: H/O OK-see cardiology note. (3) Chest pain Assessment & Plan: See Cardiology note. Await adenosine stress test today . (4) Bipolar 1 disorder, depressed Assessment & Plan: Continue Depakote; latuda non formulary. Await psych consult. (5) CHF (congestive heart failure) Assessment & Plan: LVEF=30%. See cardiology note. Status: not improved SHANNON DIAS Sep 05, 2016 13:09
[2016-09-05 16:01] VITALS: BP 128/70
--- NOTE | 2016-09-06 13:20 | Discharge Summary ---
Discharge Summary Hospital Course Date of Admission Sep 02, 2016 at 20:42 Date of Discharge Sep 05, 2016 at 18:15 Admitting Diagnosis chest pain Reason for Hospitalization: chest pain in patient with hx of HTN CAD, hx of [place] HPI Gibson Ambrose is a 51 year old male who was admitted on Sep 02, 2016 at 20:42 for Chest Pain This patient presented with chest pain that started about one hour prior to arrival, non radiating, intermittent. Patient reported that he was at home and was not exerting himself when the symptoms started. History of 2 previous heart attacks, HTN + Cocaine use 2 days ago. denied any recent illness. No cough or congestion. No fever or chills. No abdominal pain. No other complaints. Consultations cardio dr Mae psych dr Lopez Hospital Course admitted to tele cardio consult requested serial troponin x [address] depression in leads 2,3,aVF; TWI in leads V4, V5, V6 ruled out for acute STEMI, hx of CAD with [place] x 2 ECHO with EF 30%, global LV hypokinesis, RVSP of10 CXR no acute cardiopulmonary disease CTA no PE stress test pending chest pain likely atypical 2 to recent cocaine use lipid panel with elevated TG, normal LDL continue ASA BP management with SHIRA, conservative management of SHF with SHIRA, diuretics ( Lasix and Spironolactone) no BB due to cocaine use no evidence of CHF exacerbation counseled on abstinence from street drugs psych follows on Depakote and Seroquel resume Latuda when at home ( not formulary) psych added Clonidine at [facility] health counselor on abstinence from street drugs patient did not want to wait for stress test and decided to sign AMA PMD notified patient was informed re risks and consequences of signing AMA patient insisted and signed AMA Upon signing AMA, VSS, no tachy, BP stable, no further complaints of chest pain Discharge Discharge Disposition Patient signed AMA Discharge Diagnoses: (1) Atypical chest pain (2) Systolic CHF (3) Cocaine abuse (4) Accelerated hypertension (5) Coronary artery disease (6) Hx of myocardial infarction (7) Bipolar 1 disorder, depressed Discharge Instructions Discharge Instructions Special Instructions I have been assigned to complete a D/C Summary on this account. I was not involved in the patient management Cailin Ratliff NP (Vanchtein) Sep 06, 2016 13:20
--- NOTE | 2016-09-06 18:04 | Cardiology Report ---
APPROVED REPORT EKG Measurement Heart [id number] 130P50 [id number] Normal sinus rhythm Left axis deviation Moderate voltage criteria for LVH, may be normal variant T wave abnormality, consider inferior ischemia T wave abnormality, consider anterolateral ischemia Abnormal ECG
--- NOTE | 2016-09-06 18:04 | Cardiology Report ---
APPROVED REPORT EKG Measurement Heart [id number] [id number] Normal sinus rhythm Moderate voltage criteria for LVH, may be normal variant Abnormal ECG
--- NOTE | 2016-09-12 23:58 | Physician Query ---
PLEASE COMPLETE THE DOCUMENT BEFORE SIGNING Dear Dr. SAGASTUME Date: 09/12/2016 General Assembler Installer/CDS' Name: AJ CLINE, CCS Exercise your independent professional judgment when responding to query. Questions asked do not imply particular answer is desired or expected. We greatly appreciate your clarification on this issue. Clinical Documentation States: Reason for Hospitalization: chest pain in patient with hx of HTN CAD, hx of [place] Cosmo Ambrose is a 51 year old male who was admitted on Sep 02, 2016 at 20: 42 for Chest Pain ECG with ST depression in leads 2,3,aVF; TWI in leads V4, V5, V6 ruled out for acute STEMI, hx of CAD with [place] x 2 ECHO with EF 30%, global LV hypokinesis, RVSP of10 CXR no acute cardiopulmonary disease CTA no PE stress test pending no BB due to cocaine use no evidence of CHF exacerbation counseled on abstinence from street drugs Please document the suspected etiology of Chest Pain: a.Type: [x]Cardiac []Non-cardiac []Unspecified b.Etiology - cardiac [] Aortic dissection []Mitral valve prolapsed [] Acute myocardial infarction []Spasm of coronary arteries [x] Coronary Artery Disease []Pericarditis c.Etiology - non-cardiac [] Anxiety []Pleurisy [] Cancer []Pneumonia, type [] Costochondritis []Pneumothorax [] GERD/Esophagitis []Pulmonary embolism [] Unable to determine []Other: Please also document in your Progress Notes and/or Discharge Summary and indicate if the condition was present on admission. NATHALIA SAGASTUME M.D. DATE & TIME [facility]
== END 2016-09-05 18:15 | disposition left against medical advice (07) | DRG 198 ==
LOC: EDBD 19:08 → EMR 19:22 → EDBEDREQSVC 20:36 → INTOOBSV 20:42 → OBSVTOIN 20:42 → ICU 20:42 → EDBEDREQ 21:26 → 2W 09-03 22:29
DX: I25.10 Atherosclerotic heart disease of native coronary artery without angina pectoris (principal); I42.7 Cardiomyopathy due to drug and external agent; I11.0 Hypertensive heart disease with heart failure; I50.20 Unspecified systolic (congestive) heart failure; I25.2 Old myocardial infarction; F19.10 Other psychoactive substance abuse, uncomplicated; F10.10 Alcohol abuse, uncomplicated; F31.9 Bipolar disorder, unspecified
CPT/HCPCS: 36415; 71010; 71275; 72191; 74175; 80048; 80053; 80061; 80300; 82550; 82553; 83735; 83880; 84100; 84439; 84443; 84484; 85007; 85025; 87081; 93005; 93306; J2405